=== PATIENT | male | born 1985 | race Hispanic/Latino ===

== ENCOUNTER 2017-05-01 23:56 | Emergency (ER) | payer OTHER ==
[~2017-05-01] VITALS: Ht 170.2 cm; Wt 170.5 kg
[~2017-05-01 23:56] MED LIST: EXCEDRIN EXTRA1 EACH PO; WELLBUTRIN XL300 MG PO; ZOLOFT100 MG PO
[2017-05-02 01:54] VITALS: BP 136/94
== END 2017-05-02 02:08 | disposition home or self-care (01) ==
LOC: EME 23:56
DX: G43.909 Migraine, unspecified, not intractable, without status migrainosus (principal); Z87.891 Personal history of nicotine dependence; Z88.2 Allergy status to sulfonamides
CPT/HCPCS: 99281; 99285; J1200; J1885; J2765; J7030